=== PATIENT | female | born 1955 | race Caucasian/White ===

== ENCOUNTER 2020-08-09 12:14 | Outpatient (REF) | payer OTHER, SELFPAY ==
[2020-08-09 14:03] LABS: Estimated Average Glucose 192 mg/dL; Hemoglobin A1c % 8.3 %
[2020-08-09 14:07] LABS: Anion Gap 12 (12-20); Blood Urea Nitrogen 17 mg/dL (9-16); Calcium 8.5 mg/dL (8.4-10.2); Carbon Dioxide 24 mmol/L (22-29); Chloride 108 mmol/L (96-108); Cholesterol 154 mg/dL; Estimated Glomerular Filt Rate > 60; Glucose Fasting 135 mg/dL (60-99); HDL Cholesterol 45 mg/dL; LDL Cholesterol Calculated 99 mg/dl; Sodium 140 mmol/L (135-145); Triglycerides 52 mg/dL
[2020-08-09 14:45] LABS: Creatinine Urine 85.35 mg/dL; Microalbum/Creatinine Ratio Ur 12.8 ug/mg cr
== END 2020-08-09 12:15 | disposition home or self-care (01) ==
LOC: HO.10HDL 12:14
PROVIDERS: Visit Provider Internal Medicine
DX: E11.65 Type 2 diabetes mellitus with hyperglycemia (principal)
CPT/HCPCS: 36415; 80048; 80061; 82043; 83036